=== PATIENT | male | born 1985 | race Caucasian/White ===

== ENCOUNTER 2017-10-19 11:30 | Emergency (ER) | payer SELFPAY ==
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
[2017-10-19] MEDS ORDERED: DIPH,PERTUSS(ACELL),TET VAC/PF 0.5 ML DISP.SYRIN IM ONE (11:55)
[2017-10-19 12:22] LABS: BASOPHILS % 0.7 (0.0-1.5); EOSINOPHILS % 1.1 % (0.0-6.8); MEAN CORPUSCULAR HEMOGLOBIN 32.1 pg (28.0-34.0); MEAN CORPUSCULAR VOLUME 94.2 fl (80.0-100.0); MONOCYTES % 7.1 % (0.0-11.0); NEUTROPHILS # 4.6 # k/uL (1.4-7.7)
[2017-10-19 12:31] VITALS: BP 134/81
[2017-10-19 12:36] LABS: eGFR (African) > 60; eGFR (Non-African) > 60
== END 2017-10-19 12:25 | disposition home or self-care (01) ==
LOC: ED 11:30
DX: T75.89XA Other specified effects of external causes, initial encounter (principal); X58.XXXA Exposure to other specified factors, initial encounter; Y93.9 Activity, unspecified; Y99.9 Unspecified external cause status
CPT/HCPCS: 80053; 80074; 85025; 86703; 90471; 90715; 99283